=== PATIENT | female | born 1960 | race Caucasian/White ===

== ENCOUNTER 2020-11-28 10:54 | Inpatient (IN) | payer MEDICAID ==
[~2020-11-28] VITALS: Ht 160 cm; Wt 80.9 kg
[2020-11-28] MEDS ORDERED: SERT-158 PO (16:00)
[2020-11-28] MEDS ORDERED: QUET200T PO ×2 (16:00)
[2020-11-28 18:26] VITALS: BP 137/88
[2020-11-28] MEDS ORDERED: ACETAMINOPHEN 325 MG TABLET PO PRN (21:30)
[2020-11-29 00:12] VITALS: BP 126/78
[2020-11-29] MEDS: LORazepam 2 MG TABLET PO PRN ×2 (00:55→08:49)
[2020-11-29] MEDS: ZOLPIDEM TARTRATE 10 MG TABLET PO PRN (00:55)
[2020-11-29 07:51] LABS: BASOPHILS % (AUTO) 0.7 % (0.0-2.0); EOSINOPHILS % (AUTO) 3.7 % (1.0-6.0); HEMATOCRIT 43.6 % (36-46); HEMOGLOBIN 14.6 g/dL (12.0-16.0); LYMPHOCYTES % (AUTO) 28.2 % (22.0-44.0); MEAN CORPUSCULAR HEMOGLOBIN 29.3 pg (26.0-34.0); MEAN CORPUSCULAR HGB CONC 33.5 G/dL (31.0-37.0); MEAN CORPUSCULAR VOLUME 88 fL (80-100); MONOCYTES # (AUTO) 0.5 K/uL (0.1-1.0); MONOCYTES % (AUTO) 7.9 % (2.0-9.0); NEUTROPHILS # (AUTO) 4.1 K/uL (1.8-7.7); NEUTROPHILS % (AUTO) 59.5 % (40.0-70.0); PLATELET COUNT (AUTO) 296 K/uL (150-450); RED BLOOD CELL COUNT(AUTO) 4.98 MIL/uL (4.00-5.20); RED CELL DISTRIBUTION WIDTH 13.3 % (11.5-14.5)
[2020-11-29 08:00] LABS: HEMOGLOBIN A1C 5.4 % (3.8-5.6)
[2020-11-29 08:18] VITALS: BP 123/67
[2020-11-29 08:18] LABS: ALANINE AMINOTRANSFERASE 29 U/L (12-78); ALBUMIN 3.2 g/dL (3.4-5.0); ALKALINE PHOSPHATASE 98 U/L (46-116); ANION GAP 5 mmol/L (8-16); ASPARTATE AMINOTRANSFERASE 22 U/L (15-37); BILIRUBIN,TOTAL 0.4 mg/dL (0.1-1.0); CALCIUM, TOTAL 8.6 mg/dL (8.8-10.5); CARBON DIOXIDE 27 mmol/L (22-29); CHLORIDE 105 mmol/L (98-107); CHOL/HDL RATIO 2.9 (3.9-5.7); CHOLESTEROL 196 mg/dL (131-200); CREATININE 0.79 mg/dL (0.60-1.30); FREE T4 (FREE THYROXINE) 1.03 ng/dL (0.76-1.46); GLOMERULAR FILTR. RATE CALC > 60 mL/min (>60); GLUCOSE,RANDOM 84 mg/dL (70-110); HDL CHOLESTEROL 67 mg/dL (40-60); LDL CHOL (CALC.) 112 mg/dL (0-130); SODIUM SERUM 137 mmol/L (136-145); THYROID STIMULATING HORMONE 2.09 uIU/mL (0.36-3.74); TOTAL PROTEIN, SERUM 6.7 g/dL (6.4-8.2); TRIGLYCERIDES 83 mg/dL (15-150); UREA NITROGEN, BLOOD 9 mg/dL (7-18)
[2020-11-29] MEDS: QUEtiapine FUMARATE 200 MG TABLET PO SCH ×3 (10:41→22:21)
[2020-11-29] MEDS: SERTRALINE HCL 50 MG TABLET PO SCH (10:41)
[2020-11-29] MEDS ORDERED: CloNIDine HCL 0.1 MG TABLET PO PRN (20:15)
[2020-11-29] MEDS ORDERED: ALBUTEROL SULFATE HFA 90 MCG/PUFF 8 GM INHALER IH PRN (20:15)
[2020-11-29] MEDS ORDERED: OMEPRAZOLE 20 MG CAPSULE PO PRN (20:15)
[2020-11-29] MEDS ORDERED: MAGNESIUM HYDROXIDE SUSPENSION 30 ML UDCUP PO PRN (20:15)
[2020-11-29] MEDS ORDERED: BACITRACIN 28 GM OINTMENT TP PRN (20:15)
[2020-11-29] MEDS ORDERED: BENZOCAINE/MENTHOL LOZENGE PO PRN (20:15)
[2020-11-29] MEDS ORDERED: LOPERAMIDE HCL 2 MG CAPSULE PO PRN (20:15)
[2020-11-29] MEDS ORDERED: MAG HYDROX/AL HYDROX/SIMETH ES 30 ML SUSPENSION UDCUP PO PRN (20:15)
[2020-11-29] MEDS ORDERED: DOCUSATE SODIUM 100 MG CAPSULE PO PRN (20:15)
[2020-11-29] MEDS ORDERED: ONDANSETRON HCL 4 MG TABLET PO PRN (20:15)
[2020-11-29] MEDS ORDERED: PETROLATUM,WHITE 28 GM JELLY TP PRN (20:15)
[2020-11-30 08:01] VITALS: BP 111/59
[2020-11-30] MEDS: SERTRALINE HCL 50 MG TABLET PO SCH (08:11)
[2020-11-30] MEDS: HALOPERIDOL 5 MG TABLET PO PRN ×2 (08:11→16:21)
[2020-11-30] MEDS: LORazepam 2 MG TABLET PO PRN ×2 (08:11→16:21)
[2020-11-30] MEDS: QUEtiapine FUMARATE 200 MG TABLET PO SCH ×3 (08:12→20:17)
[2020-11-30 16:02] VITALS: BP 100/67
[2020-12-01 00:26] VITALS: BP 101/62
[2020-12-01 08:05] VITALS: BP 99/58
[2020-12-01] MEDS: SERTRALINE HCL 50 MG TABLET PO SCH (08:27)
[2020-12-01] MEDS: QUEtiapine FUMARATE 200 MG TABLET PO SCH ×3 (08:27→20:04)
[2020-12-01 10:00] VITALS: BP 104/68
[2020-12-01 16:03] VITALS: BP 126/71
[2020-12-01] MEDS: LORazepam 2 MG TABLET PO PRN (21:41)
[2020-12-02 00:43] VITALS: BP 114/68
[2020-12-02 08:09] VITALS: BP 122/68
[2020-12-02] MEDS: SERTRALINE HCL 50 MG TABLET PO SCH (08:18)
[2020-12-02] MEDS: QUEtiapine FUMARATE 200 MG TABLET PO SCH ×3 (08:18→21:09)
[2020-12-02] MEDS: LORazepam 2 MG TABLET PO PRN ×2 (13:43→20:23)
[2020-12-02 16:35] VITALS: BP 111/64
[2020-12-03 00:45] VITALS: BP 104/60
[2020-12-03 08:04] VITALS: BP 116/61
[2020-12-03] MEDS: SERTRALINE HCL 50 MG TABLET PO SCH (08:27)
[2020-12-03] MEDS: QUEtiapine FUMARATE 200 MG TABLET PO SCH ×3 (08:27→20:09)
[2020-12-03] MEDS: LORazepam 2 MG TABLET PO PRN ×2 (11:02→16:09)
[2020-12-03 16:09] VITALS: BP 111/69
[2020-12-03] MEDS: ZOLPIDEM TARTRATE 10 MG TABLET PO PRN (20:09)
[2020-12-04 00:14] VITALS: BP 107/66
[2020-12-04] MEDS: SERTRALINE HCL 50 MG TABLET PO SCH (08:06)
[2020-12-04] MEDS: QUEtiapine FUMARATE 200 MG TABLET PO SCH ×3 (08:06→20:23)
[2020-12-04 08:10] VITALS: BP 112/66
[2020-12-04] MEDS: LORazepam 2 MG TABLET PO PRN ×2 (10:22→16:10)
[2020-12-04 16:01] VITALS: BP 114/73
[2020-12-04] MEDS: ZOLPIDEM TARTRATE 10 MG TABLET PO PRN (20:23)
[2020-12-05 00:30] VITALS: BP 109/78
[2020-12-05 08:17] VITALS: BP 118/67
[2020-12-05] MEDS: SERTRALINE HCL 50 MG TABLET PO SCH (08:30)
[2020-12-05] MEDS: LORazepam 2 MG TABLET PO PRN ×2 (08:30→16:04)
[2020-12-05] MEDS: QUEtiapine FUMARATE 200 MG TABLET PO SCH ×3 (08:30→20:16)
[2020-12-05 16:04] VITALS: BP 121/62
[2020-12-05] MEDS: ZOLPIDEM TARTRATE 10 MG TABLET PO PRN (20:16)
[2020-12-06 04:43] VITALS: BP 102/62
[2020-12-06 08:12] VITALS: BP 104/60
[2020-12-06 08:30] VITALS: BP 108/72
[2020-12-06] MEDS: QUEtiapine FUMARATE 200 MG TABLET PO SCH ×3 (08:30→20:28)
[2020-12-06] MEDS: MULTIVITAMINS WITH MINERALS, THERAPEUTIC TABLET PO SCH (08:30)
[2020-12-06] MEDS: SERTRALINE HCL 50 MG TABLET PO SCH (08:30)
[2020-12-06] MEDS: LORazepam 2 MG TABLET PO PRN ×2 (08:31→17:09)
[2020-12-06 16:05] VITALS: BP 115/74
[2020-12-06] MEDS: ZOLPIDEM TARTRATE 10 MG TABLET PO PRN (20:45)
[2020-12-07 03:07] VITALS: BP 110/71
[2020-12-07] MEDS: SERTRALINE HCL 50 MG TABLET PO SCH (08:43)
[2020-12-07] MEDS: MULTIVITAMINS WITH MINERALS, THERAPEUTIC TABLET PO SCH (08:43)
[2020-12-07] MEDS: LORazepam 2 MG TABLET PO PRN ×2 (08:44→16:31)
[2020-12-07] MEDS: QUEtiapine FUMARATE 200 MG TABLET PO SCH ×3 (08:44→20:07)
[2020-12-07 16:04] VITALS: BP 126/79
[2020-12-07] MEDS: HALOPERIDOL 5 MG TABLET PO SCH (20:07)
[2020-12-07] MEDS: ZOLPIDEM TARTRATE 10 MG TABLET PO PRN (20:25)
[2020-12-08] MEDS: LORazepam 2 MG TABLET PO PRN ×2 (00:48→13:22)
[2020-12-08 00:55] VITALS: BP 120/73
[2020-12-08 08:03] VITALS: BP 119/69
[2020-12-08] MEDS: QUEtiapine FUMARATE 200 MG TABLET PO SCH ×3 (08:54→20:24)
[2020-12-08] MEDS: MULTIVITAMINS WITH MINERALS, THERAPEUTIC TABLET PO SCH (08:54)
[2020-12-08] MEDS: SERTRALINE HCL 50 MG TABLET PO SCH (08:54)
[2020-12-08 16:09] VITALS: BP 106/64
[2020-12-08] MEDS: HALOPERIDOL 5 MG TABLET PO SCH (20:24)
[2020-12-09 00:11] VITALS: BP 103/62
[2020-12-09] MEDS: SERTRALINE HCL 50 MG TABLET PO SCH (07:55)
[2020-12-09] MEDS: MULTIVITAMINS WITH MINERALS, THERAPEUTIC TABLET PO SCH (07:55)
[2020-12-09] MEDS: QUEtiapine FUMARATE 200 MG TABLET PO SCH ×3 (07:55→20:07)
[2020-12-09 08:21] VITALS: BP 106/63
[2020-12-09] MEDS: LORazepam 2 MG TABLET PO PRN (10:35)
[2020-12-09 16:30] VITALS: BP 107/65
[2020-12-09] MEDS: HALOPERIDOL 5 MG TABLET PO SCH (20:07)
[2020-12-10 01:34] VITALS: BP 102/66
[2020-12-10] MEDS: LORazepam 2 MG TABLET PO PRN ×3 (06:32→18:15)
[2020-12-10] MEDS: SERTRALINE HCL 50 MG TABLET PO SCH (08:20)
[2020-12-10] MEDS: MULTIVITAMINS WITH MINERALS, THERAPEUTIC TABLET PO SCH (08:20)
[2020-12-10] MEDS: QUEtiapine FUMARATE 200 MG TABLET PO SCH ×3 (08:21→20:27)
[2020-12-10 08:33] VITALS: BP 120/67
[2020-12-10 16:10] VITALS: BP 112/61
[2020-12-10] MEDS: HALOPERIDOL 5 MG TABLET PO SCH (20:27)
[2020-12-10] MEDS: ZOLPIDEM TARTRATE 10 MG TABLET PO PRN (21:14)
[2020-12-11 01:16] VITALS: BP 119/61
[2020-12-11 08:26] VITALS: BP 138/60
[2020-12-11] MEDS: MULTIVITAMINS WITH MINERALS, THERAPEUTIC TABLET PO SCH (08:30)
[2020-12-11] MEDS: QUEtiapine FUMARATE 200 MG TABLET PO SCH ×3 (08:30→20:50)
[2020-12-11] MEDS: LORazepam 2 MG TABLET PO PRN ×2 (08:30→17:06)
[2020-12-11] MEDS: SERTRALINE HCL 50 MG TABLET PO SCH (08:30)
[2020-12-11 16:18] VITALS: BP 109/63
[2020-12-11] MEDS: HALOPERIDOL 5 MG TABLET PO SCH (20:48)
[2020-12-11] MEDS: ZOLPIDEM TARTRATE 10 MG TABLET PO PRN (20:50)
[2020-12-12 00:24] VITALS: BP 100/61
[2020-12-12 08:39] VITALS: BP 102/61
[2020-12-12] MEDS: MULTIVITAMINS WITH MINERALS, THERAPEUTIC TABLET PO SCH (08:57)
[2020-12-12] MEDS: QUEtiapine FUMARATE 200 MG TABLET PO SCH ×3 (08:57→20:37)
[2020-12-12] MEDS: SERTRALINE HCL 50 MG TABLET PO SCH (08:57)
[2020-12-12 16:14] VITALS: BP 102/62
[2020-12-12] MEDS: HALOPERIDOL 5 MG TABLET PO SCH (20:37)
[2020-12-12] MEDS: ZOLPIDEM TARTRATE 10 MG TABLET PO PRN (20:37)
[2020-12-13 00:44] VITALS: BP 100/60
[2020-12-13] MEDS: LORazepam 2 MG TABLET PO PRN ×3 (02:46→13:16)
[2020-12-13] MEDS: MULTIVITAMINS WITH MINERALS, THERAPEUTIC TABLET PO SCH (08:40)
[2020-12-13] MEDS: SERTRALINE HCL 50 MG TABLET PO SCH (08:40)
[2020-12-13] MEDS: QUEtiapine FUMARATE 200 MG TABLET PO SCH ×3 (08:40→20:34)
[2020-12-13 08:41] VITALS: BP 102/54
[2020-12-13 13:15] VITALS: BP 108/74
[2020-12-13 16:35] VITALS: BP 115/65
[2020-12-13] MEDS: HALOPERIDOL 5 MG TABLET PO SCH (20:34)
[2020-12-14 05:46] VITALS: BP 110/65
[2020-12-14 08:19] VITALS: BP 112/71
[2020-12-14] MEDS: MULTIVITAMINS WITH MINERALS, THERAPEUTIC TABLET PO SCH (09:02)
[2020-12-14] MEDS: SERTRALINE HCL 50 MG TABLET PO SCH (09:02)
[2020-12-14] MEDS: QUEtiapine FUMARATE 200 MG TABLET PO SCH ×3 (09:02→20:26)
[2020-12-14] MEDS: ACETAMINOPHEN 325 MG TABLET PO PRN ×2 (12:24→17:56)
[2020-12-14 16:08] VITALS: BP 135/77
[2020-12-14 17:56] VITALS: BP 129/78
[2020-12-14] MEDS: ZOLPIDEM TARTRATE 10 MG TABLET PO PRN (20:26)
[2020-12-14] MEDS: HALOPERIDOL 5 MG TABLET PO SCH (20:26)
[2020-12-15 00:29] VITALS: BP 102/62
[2020-12-15 08:17] VITALS: BP 114/75
[2020-12-15] MEDS: SERTRALINE HCL 50 MG TABLET PO SCH (08:54)
[2020-12-15] MEDS: MULTIVITAMINS WITH MINERALS, THERAPEUTIC TABLET PO SCH (08:54)
[2020-12-15] MEDS: QUEtiapine FUMARATE 200 MG TABLET PO SCH ×4 (08:54→20:33)
[2020-12-15] MEDS: LORazepam 2 MG TABLET PO PRN ×2 (09:06→16:26)
[2020-12-15] MEDS: ACETAMINOPHEN 325 MG TABLET PO PRN ×2 (10:03→19:54)
[2020-12-15 15:06] LABS: APPEARANCE,URINE CLEAR (CLEAR); BILIRUBIN,URINE NEGATIVE (NEGATIVE); GLUCOSE, URINE (UA) NEGATIVE (NEGATIVE); KETONES,URINE NEGATIVE (NEGATIVE); LEUKOCYTE ESTERASE ,URINE SMALL (NEGATIVE); NITRATE,URINE NEGATIVE (NEGATIVE); OCCULT BLOOD,URINE NEGATIVE (NEGATIVE); PROTEIN,URINE NEGATIVE (NEGATIVE); UROBILINOGEN,URINE 0.2 mg/dL (<=1.0)
[2020-12-15 15:22] LABS: BACTERIA,URINE Rare /HPF (None Seen); RBC,URINE 0-2 /HPF (0-2); SQUAMOUS EPITHELIAL CELL,UR Few /LPF (None Seen)
[2020-12-15 16:20] VITALS: BP 109/75
[2020-12-15] MEDS: HALOPERIDOL 5 MG TABLET PO SCH ×2 (20:00→20:33)
[2020-12-16 05:27] VITALS: BP 100/74
[2020-12-16] MEDS: ACETAMINOPHEN 325 MG TABLET PO PRN (06:43)
[2020-12-16] MEDS: SERTRALINE HCL 50 MG TABLET PO SCH (08:11)
[2020-12-16] MEDS: MULTIVITAMINS WITH MINERALS, THERAPEUTIC TABLET PO SCH (08:11)
[2020-12-16] MEDS: QUEtiapine FUMARATE 200 MG TABLET PO SCH (08:11)
[2020-12-16 08:25] VITALS: BP 108/61
[2020-12-16] MEDS ORDERED: HALO5TAB2 PO (11:27)
== END 2020-12-16 12:15 | disposition home or self-care (01) | DRG 750 ==
LOC: B3A 16:15
PROVIDERS: ADMIT Psychiatry & Neurology Psychiatry; ATTEND Psychiatry & Neurology Psychiatry
DX: F20.0 Paranoid schizophrenia (principal); E66.9 Obesity, unspecified; F41.9 Anxiety disorder, unspecified; G47.00 Insomnia, unspecified; K59.00 Constipation, unspecified; Z68.31 Body mass index [BMI] 31.0-31.9, adult
CPT/HCPCS: 80053; 80061; 81001; 83036; 84439; 84443; 85025; 87077; 87086